=== PATIENT | female | born 2000 | race Caucasian/White ===

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

== ENCOUNTER 2018-05-29 20:33 | Inpatient (IN) | payer OTHER ==
[~2018-05-29] VITALS: Ht 160 cm; Wt 65.0 kg
[2018-05-29 21:16] LABS: HEMATOCRIT 38.8 % (37.0-47.0); HEMOGLOBIN 13.3 g/dl (12.0-16.0); IMMATURE GRANULOCYTES 0.3 % (0.0-1.0); MEAN CELL VOLUME 86.2 fL CALC (80.0-100.0); MEAN CORPUSCULAR HGB 29.6 pG CALC (26.0-32.0); MEAN CORPUSCULAR HGB CONC 34.3 g/L CALC (32.0-36.0); NEUT# 6.46 thou/uL (2.00-7.15); RED BLOOD COUNT 4.5 mill/uL (4.20-5.60)
[2018-05-29 21:29] LABS: ALBUMIN 4.2 g/dL (3.2-5.0); ALKALINE PHOSPHATASE 62 u/l (38-126); ANION GAP 13 (6-22 (CALC)); BILIRUBIN, TOTAL 1.9 mg/dL (0.0-1.4); BUN 13 mg/dL (8-21); BUN/CREATININE RATIO 16 (12-20 (CALC)); CARBON DIOXIDE 24 mmol/l (22-30); CHLORIDE 106 mmol/l (95-108); CREATININE 0.8 mg/dL (0.5-1.0); GFR > 60 ML/MIN (>=60 (CALC)); GFR FOR AFR.AMER. > 60 ML/MIN (>=60 (CALC)); POTASSIUM 3.7 mmol/l (3.5-5.1); SGOT/AST 15 u/l (14-36); SGPT/ALT 23 u/l (9-52); SODIUM 139 mmol/l (137-146); TOTAL PROTEIN 6.9 g/dL (6.3-8.2)
[2018-05-29 21:30] LABS: ETHYL ALCOHOL 0 mg/dl (0-30)
[2018-05-29 21:54] LABS: URINE BILIRUBIN - DIPSTICK NEGATIVE (NEGATIVE); URINE BLOOD DIPSTICK NEGATIVE (NEGATIVE); URINE COLOR YELLOW; URINE GLUCOSE - DIPSTICK NEGATIVE (NEGATIVE); URINE KETONE TRACE mg/dL (NEGATIVE); URINE LEUK ESTERASE TRACE (NEGATIVE); URINE NITRITE - DIPSTICK NEGATIVE (Negative); URINE PROTEIN - DIPSTICK TRACE mg/dL (NEG-TRACE); URINE SPECIFIC GRAVITY 1.025; URINE UROBILINOGEN - DIPSTICK 0.2 E.U./dL (0.2)
[2018-05-29 21:55] LABS: URINE CLARITY SL CLOUDY
[2018-05-29 21:58] LABS: BARBITURATES NEGATIVE (NEGATIVE); COCAINE NEGATIVE (NEGATIVE); METHADONE NEGATIVE (NEGATIVE); OXCYCODONE NEGATIVE (NEGATIVE); TETRAHYDROCANNABIONOL POSITIVE (NEGATIVE)
[2018-05-29 21:59] LABS: TRICYLIC ANTIDEPRESSANTS POSITIVE (NEGATIVE)
[2018-05-29 23:00] VITALS: BP 118/75
[2018-05-29 23:15] VITALS: BP 111/75
[2018-05-29 23:30] VITALS: BP 108/71
[2018-05-29 23:45] VITALS: BP 97/63
[2018-05-30] VITALS (11 sets, daily range): BP systolic 91–122; BP diastolic 51–82
[2018-05-30 04:45] LABS: HEMATOCRIT 40.7 % (37.0-47.0); IMMATURE GRANULOCYTES 0.3 % (0.0-1.0); MEAN CELL VOLUME 87.5 fL CALC (80.0-100.0); MEAN CORPUSCULAR HGB 30.1 pG CALC (26.0-32.0); MEAN CORPUSCULAR HGB CONC 34.4 g/L CALC (32.0-36.0); NEUT# 8.99 thou/uL (2.00-7.15); RED BLOOD COUNT 4.65 mill/uL (4.20-5.60); RED CELL DISTRI WIDTH 12.2 % (11.5-15.5)
[2018-05-30 04:54] LABS: ANION GAP 13 (6-22 (CALC)); BUN 13 mg/dL (8-21); BUN/CREATININE RATIO 14 (12-20 (CALC)); CARBON DIOXIDE 25 mmol/l (22-30); CHLORIDE 106 mmol/l (95-108); CREATININE 0.9 mg/dL (0.5-1.0); GFR > 60 ML/MIN (>=60 (CALC)); GFR FOR AFR.AMER. > 60 ML/MIN (>=60 (CALC)); SODIUM 139 mmol/l (137-146)
== END 2018-05-30 14:30 | disposition designated cancer center or children's hospital (05) | DRG 918 ==
LOC: ED 20:33 → ED-I 21:36 → ED 22:05 → ICU 22:06
PROVIDERS: Emergency Medicine; ADMIT Internal Medicine; ATTEND Internal Medicine
DX: T39.1X2A Poisoning by 4-Aminophenol derivatives, intentional self-harm, initial encounter (principal); T45.0X2A Poisoning by antiallergic and antiemetic drugs, intentional self-harm, initial encounter; F32.9 Major depressive disorder, single episode, unspecified

== ENCOUNTER 2019-01-29 16:02 | Emergency (ER) | payer OTHER ==
[~2019-01-29] VITALS: Ht 160 cm; Wt 60.0 kg
[2019-01-29] MEDS ORDERED: LORATADINE10 M4 PO (16:25)
[2019-01-29] MEDS ORDERED: CEPHALEXIN500 M1 PO (16:29)
[2019-01-29 16:35] VITALS: BP 128/63
== END 2019-01-29 16:35 | disposition home or self-care (01) | DRG 603 ==
LOC: ED 16:02
DX: L03.115 Cellulitis of right lower limb (principal); M79.604 Pain in right leg

== ENCOUNTER → 2019-02-03 | Outpatient (REF) | payer OTHER ==
[~2019-02-03] MED LIST changes: +CEPHALEXIN500 M1 PO; +LORATADINE10 M4 PO
== END | disposition home or self-care (01) | DRG 761 ==
LOC: LAB 16:49
DX: N91.2 Amenorrhea, unspecified (principal)

== ENCOUNTER 2021-08-22 13:57 | Emergency (ER) | payer OTHER ==
[~2021-08-22] VITALS: Ht 160 cm; Wt 65.9 kg
[2021-08-22 17:39] LABS: HEMATOCRIT 38.9 % (37.0-47.0); IMMATURE GRANULOCYTES 0.1 % (0.0-5.0); MEAN CORPUSCULAR HGB 30.1 pG CALC (26.0-32.0); MEAN CORPUSCULAR HGB CONC 33.4 g/dL CAL (32.0-36.0); NEUT# 7.93 thou/uL (2.00-7.15); RED BLOOD COUNT 4.32 mill/uL (4.20-5.60); RED CELL DISTRI WIDTH 12.3 % (11.5-15.5)
[2021-08-22 17:51] LABS: ALBUMIN 4.4 g/dL (3.2-5.0); ALKALINE PHOSPHATASE 51 u/l (38-126); AMYLASE 95 u/l (30-110); ANION GAP 11 (6-22 (CALC)); BILIRUBIN, TOTAL 1.5 mg/dL (0.0-1.4); BUN 12 mg/dL (7-17); BUN/CREATININE RATIO 15 (12-20 (CALC)); CARBON DIOXIDE 26 mmol/l (22-30); CHLORIDE 104 mmol/l (95-108); CREATININE 0.8 mg/dL (0.5-1.0); GFR > 60 ML/MIN (>=60 (CALC)); GFR FOR AFR.AMER. > 60 ML/MIN (>=60 (CALC)); LIPASE 28 u/l (23-300); POTASSIUM 3.9 mmol/l (3.5-5.1); SGOT/AST 21 u/l (14-36); SODIUM 137 mmol/l (137-146); TOTAL PROTEIN 7.5 g/dL (6.3-8.2)
[2021-08-22] MEDS ORDERED: ONDANSETRON4 MG PO (18:31)
[2021-08-22 18:57] LABS: URINE BILIRUBIN - DIPSTICK NEGATIVE (NEGATIVE); URINE BLOOD DIPSTICK NEGATIVE (NEGATIVE); URINE COLOR YELLOW; URINE GLUCOSE - DIPSTICK NEGATIVE (NEGATIVE); URINE KETONE NEGATIVE (NEGATIVE); URINE LEUK ESTERASE NEGATIVE (NEGATIVE); URINE PROTEIN - DIPSTICK TRACE mg/dL (NEG-TRACE); URINE SPECIFIC GRAVITY 1.025; URINE UROBILINOGEN - DIPSTICK 0.2 E.U./dL (0.2)
[2021-08-22 19:00] LABS: URINE NITRITE - DIPSTICK NEGATIVE (Negative)
[2021-08-22 19:11] LABS: URINE AMORPH SEDIMENT MANY hpf (NONE-FEW); URINE RBC 0-2 RBC/hpf (0-5); URINE SQUAMOUS EPITHELIAL CELL FEW EPI/hpf (0-FEW); URINE WBC 0-2 WBC/hpf (0-5)
[2021-08-22 19:25] VITALS: BP 118/77
== END 2021-08-22 19:25 | disposition home or self-care (01) ==
LOC: ED 13:57
PROVIDERS: Emergency Medicine
DX: B34.9 Viral infection, unspecified (principal); Z20.822 Contact with and (suspected) exposure to COVID-19

== ENCOUNTER 2022-01-15 10:07 | Emergency (ER) | payer OTHER ==
[~2022-01-15] VITALS: Ht 160 cm; Wt 70.0 kg
[~2022-01-15 10:07] MED LIST changes: +ONDANSETRON4 MG PO
[2022-01-15] MEDS ORDERED: BIRTH CONTROL (12:05)
[2022-01-15] MEDS ORDERED: B-12100 MCG PO (12:08)
[2022-01-15 13:39] VITALS: BP 99/62
== END 2022-01-15 13:44 | disposition home or self-care (01) ==
LOC: ED 10:07
DX: S90.222A Contusion of left lesser toe(s) with damage to nail, initial encounter (principal); W22.09XA Striking against other stationary object, initial encounter; Y92.009 Unspecified place in unspecified non-institutional (private) residence as the place of occurrence of the external cause

== ENCOUNTER 2022-04-11 09:08 | Emergency (ER) | payer OTHER ==
[~2022-04-11] VITALS: Ht 160 cm; Wt 70.0 kg
[~2022-04-11 09:08] MED LIST changes: +B-12100 MCG PO; +BIRTH CONTROL
[2022-04-11] MEDS ORDERED: AMOXICILLIN500 M2 PO (09:53)
[2022-04-11 10:34] VITALS: BP 108/66
== END 2022-04-11 10:47 | disposition home or self-care (01) ==
LOC: ED 09:08
DX: U07.1 COVID-19 (principal); R09.81 Nasal congestion; R05.9 Cough, unspecified

== ENCOUNTER 2022-10-20 10:43 | Emergency (ER) | payer OTHER ==
[~2022-10-20] VITALS: Ht 160 cm; Wt 68.0 kg
[~2022-10-20 10:43] MED LIST changes: +AMOXICILLIN500 M2 PO
[2022-10-20 10:52] VITALS: BP 139/76
[2022-10-20] MEDS ORDERED: LAMISIL AT1 % EX (10:54)
== END 2022-10-20 11:09 | disposition home or self-care (01) ==
LOC: ED 10:43
DX: B35.4 Tinea corporis (principal)

== ENCOUNTER → 2023-01-20 | Emergency (ER) | payer OTHER ==
[~2023-01-20] VITALS: Ht 160 cm; Wt 75.7 kg
[~2023-01-20] MED LIST changes: +LAMISIL AT1 % EX; +ZOFRAN4 MG/TAB PO
[2023-01-20 09:34] VITALS: BP 113/78
[2023-01-20 12:30] VITALS: BP 113/78
== END | disposition home or self-care (01) ==
LOC: ED 09:07
DX: R10.84 Generalized abdominal pain (principal); R11.2 Nausea with vomiting, unspecified; Z20.822 Contact with and (suspected) exposure to COVID-19